=== PATIENT | male | born 1960 | race African-American/Black ===

== ENCOUNTER 2020-04-27 12:08 | Emergency (ER) | payer MEDICAID ==
[~2020-04-27] VITALS: Ht 180.3 cm; Wt 83.0 kg
[2020-04-27 12:09] VITALS: BP 142/88
== END 2020-04-27 13:31 | disposition left against medical advice (07) ==
LOC: ER 12:20
DX: Z53.21 Procedure and treatment not carried out due to patient leaving prior to being seen by health care provider (principal); R06.2 Wheezing

== ENCOUNTER 2020-07-08 09:55 | Emergency (ER) | payer MEDICAID ==
[~2020-07-08] VITALS: Ht 167.6 cm; Wt 69.0 kg
[2020-07-08 10:05] VITALS: BP 127/78
[2020-07-08] MEDS ORDERED: METHYLPREDNISOLONE SOD SUCC 125 MG/2 ML VIAL IV STA (10:23)
[2020-07-08] MEDS ORDERED: IPRATROPIUM BROMIDE (0.02%) 0.5MG/2.5ML NEB HHN STA (10:23)
[2020-07-08] MEDS ORDERED: ALBUTEROL (0.083%) 2.5MG/3ML NEB HHN STA (10:23)
== END 2020-07-08 11:15 | disposition left against medical advice (07) ==
LOC: ER 09:55
DX: J45.901 Unspecified asthma with (acute) exacerbation (principal)
CPT/HCPCS: 71045; 93005; 99283; J2930